=== PATIENT | female | born 1980 | race Caucasian/White ===

== ENCOUNTER 2019-07-07 14:29 | Emergency (ER) | payer MEDICAID, SELFPAY ==
[2019-07-07 14:30] VITALS: BP 150/93; PULSE 109; RESP 18; TEMP 36.1; O2SAT 98
--- NOTE | 2019-07-07 14:44 | CT_ITS ---
STUDY: CT ABDOMEN AND PELVIS WITHOUT CONTRAST REASON FOR EXAM: Female, 39 years old. Right flank pain radiating to umbilicus x today, dry heaves. RADIATION DOSAGE (If Supplied By Facility): CTDIvol = ( 10.42 ) mGy, DLP = ( 507.85 ) mGycm TECHNIQUE: Transaxial images were obtained from the dome of the diaphragm to the symphysis pubis without oral contrast, and without intravenous contrast. Sagittal and coronal images were reconstructed. Individualized dose optimization techniques were used for this CT. COMPARISON: None. FINDINGS: Minimal degree of increased markings at the lung bases suggestive of atelectasis. The visualized portions of the heart are within normal limits. Normal liver. Normal gallbladder and extrahepatic biliary system. Normal spleen. Normal pancreas. Normal bilateral adrenal glands. Normal right kidney. Normal left kidney. Normal visualized stomach. Normal small intestine. Normal colon. Small lymph nodes are seen in the mesentery in the right lower quadrant is suggestive of mesenteric adenitis. The appendix is visualized and appears normal. Normal abdominal aorta. Normal inferior vena cava. Normal retroperitoneum. Normal urinary bladder. There is a small umbilical hernia containing fat. Normal osseous structures. CT/Abdomen/Pelvis without Cont IMPRESSION: Findings suggestive of mesenteric adenitis. Electronically Signed: Otf Jackson, at 15:44 EST , Service support ,
--- NOTE | 2019-07-07 14:46 | ED.VIS.GEN ---
History of Present Illness Chief Complaint: Abd Pain Informant: Patient Onset: Hours Timing: Waxes and wanes Current Severity: Moderate Maximum Severity: Severe Narrative: She presents with rather abrupt onset of right flank pain a few hours ago. She states she feels like she is urinating frequently but does not have dysuria. She has had nausea and dry heaves. She denies history of kidney stone. No recent fall or injury. - Past Medical History (1) H/O: hysterectomy Status: Resolved Past Medical History - Allergies and Home Meds Allergies/Adverse Reactions: Allergies acetaminophen [From Percocet] Allergy (Intermediate, Verified 07/07/19 14:33) Hives morphine Allergy (Intermediate, Verified 07/07/19 14:33) Hives oxycodone HCl [From Percocet] Allergy (Intermediate, Verified 07/07/19 14:33) Hives Primary Care Physician: Care Physician,No Primary [NON-STAFF] - Prior records reviewed: Yes Smoking Status: Former smoker Review of Systems General: Denies: Chills, Fever Eyes: Denies: Visual changes - bilaterally ENT: Denies: Bilateral ear pain Cardiovascular: Denies: Chest pain Respiratory: Denies: Dyspnea, Cough Gastrointestinal: Reports: Abdominal pain, Nausea Genitourinary: Reports: Frequency. Denies: Dysuria, Hematuria Musculoskeletal: Denies: Swelling, Extremity Pain Skin: Denies: Rash Neurological: Denies: Headache Allergy: Denies: Uticaria Physical Exam Vital Signs/Narrative: Vital Signs Temp Pulse Resp BP Pulse Ox 07/07/19 14:30 97.0 F L 109 H 18 150/93 H 98 Inital Vital Signs reviewed: Yes General: Well nourished, Well developed Head: Normocephalic ENT: Moist mucous membranes Neck: Supple Cardiovascular: Regular rate, Regular rhythm Respiratory: No distress, CTA bilaterally Abdomen: Soft, Tender - Minimal right mid abdominal pain., Hypoactive bowel sounds Back: CVA tenderness - Right CVA tenderness Skin: Normal color Neurological: Alert, Oriented x3 Psychological: - - Anxious Diagnostic/Tx/Re-eval Impressions Abdomen/Pelvis CT 07/07/19 14:44 IMPRESSION: Findings suggestive of mesenteric adenitis. Electronically Signed: Otf Jackson, at 15:44 EST , Service support , 07/07/19 14:44 Abdomen/Pelvis without Cont [CT] Stat Laboratory Results 07/07/19 07/07/19 07/07/19 14:55 14:55 15:35 WBC 7.9 RBC 5.22 Hgb 14.8 Hct 44.7 MCV 85.6 MCH 28.4 MCHC 33.1 RDW Std Deviation 38.6 RDW Coeff of Earlene 12.4 Plt Count 328 MPV 9.9 Immature Gran % (Auto) 0.300 Neut % (Auto) 65.5 Lymph % (Auto) 28.0 [place] % (Auto) 6.2 Eos % (Auto) 0.0 Baso % (Auto) 0.0 Absolute Neuts (auto) 5.1 Absolute Lymphs (auto) 2.20 Nucleated RBC % 0 Sodium 137 Potassium 3.8 Chloride 105 Carbon Dioxide 28.0 Anion Gap 4 L BUN 7 Creatinine 0.81 Estim Creat Clear Calc 74.48 Est GFR (MDRD) Af Amer 102 Est GFR (MDRD) Non-Af 84 BUN/Creatinine Ratio 8.7 L Glucose 95 Calcium 9.8 Urine Color Yellow Urine Clarity Sl. Cloudy Urine pH 8.0 Ur Specific [place] 1.010 Urine Protein Negative Urine Glucose (UA) Normal Urine Ketones Negative Urine Occult Blood Negative Urine Nitrite Negative Urine Bilirubin Negative Urine Urobilinogen Normal Ur Leukocyte Esterase Negative Urine RBC 0 SEEN Urine WBC 0 SEEN Ur Squamous Epith Cells 0-5 SEEN Urine Bacteria 0 SEEN Urine Mucus 0 SEEN - Medical Decision Making Patient was given 2 doses of fentanyl, 25 mcg each along with Toradol and Zofran. On repeat evaluation she is resting more comfortably. Test results are discussed with her. She does have evidence of mesenteric adenitis but no other acute findings noted. She will be given a short course of [place] as well as Zofran for home. She is encouraged to return for worsening symptoms, fever, vomiting, etc. ED Disposition - Plan for ED Patient: Disposition: Home or Assisted Living Diagnosis: Mesenteric adenitis Instructions: Adenitis, Mesenteric Prescriptions: Hydrocodone Bitart/Apap 5-325 [[place] 5MG-325MG] 1 tab PO Q6H PRN PRN 3 Days #10 tab PRN Reason: Pain Transmission Status: Received by [facility] Ondansetron [Zofran Odt] 4 mg PO Q8H PRN PRN #10 tab PRN Reason: Nausea Transmission Status: Pending to [facility] Referrals: Ashia Cowart MD [STAFF PHYSICIAN] - As Needed
[2019-07-07] MEDS: fentaNYL 100 MCG/2 ML Ampul 25 MCG IV ×2 (14:57→15:16)
[2019-07-07] MEDS: Ondansetron 4 MG/2 ML Vial IV (14:57)
[2019-07-07] MEDS: Ketorolac 30 MG/ML Syringe IV (14:57)
[2019-07-07] MEDS: 0.9% Normal Saline 1,000 ML 150 ML IV (14:58)
[2019-07-07 15:08] LABS: Absolute Neutrophil Count 5.1 X10^3/uL (2.0-7.7); Hematocrit 44.7 % (37-47); Hemoglobin 14.8 g/dL (12.0-15.0); Mean Corp Hgb Conc 33.1 g/dL (32-36); Mean Corpuscular Hgb 28.4 pg (27.0-32.0); Mean Corpuscular Volume 85.6 fL (81-99); Mean Platelet Vol. 9.9 fl (6.2-12.0); Monocyte# 0.49 X10^3/uL; Monocyte% 6.2 % (0-10); NRBC Flagged by Analyzer 0 % (0-5); Neutrophil # 5.14 X10^3/uL (2.7-7.7); Neutrophil % 65.5 % (47-70); Platelet Count 328 K/mm3 (150-450); RBC Distribution Width CV 12.4 % (11.6-14.6); RBC Distribution Width SD 38.6 fl (35.1-43.9); Red Blood Count 5.22 M/mm3 (4.2-5.4); White Blood Count 7.9 K/mm3 (4.4-11.0)
[2019-07-07 15:18] VITALS: BP 149/93; PULSE 90; RESP 20; O2SAT 100
[2019-07-07 15:20] LABS: Anion Gap 4 (5-15); BUN 7 mg/dL (7-18); BUN/Creat Ratio 8.7 RATIO (10-20); Calcium,Total 9.8 mg/dL (8.5-10.1); Chloride 105 mmol/L (98-107); Creatinine, Serum 0.81 mg/dL (0.55-1.02); EST Glomerular Filtration Rate 84 mL/min (>60); Est Glom Filt Rate - Afr Amer 102 mL/min (>60); Estimated Creatinine Clearance 74.48 ml/min; Glucose 95 mg/dL (74-106); Potassium 3.8 mmol/L (3.5-5.1); Sodium Level 137 mmol/L (136-145)
[2019-07-07 15:43] LABS: Bacteria 0 SEEN /hpf (None Seen); Mucous, Urine 0 SEEN /hpf (<or=2+); Red Blood Cells-Urine 0 SEEN /hpf (0-5); White Blood Cells 0 SEEN /hpf (0-5)
[2019-07-07 15:53] LABS: Color, Urine Yellow (Yellow); Glucose, Dipstick Normal (Normal); Ketone-Dipstick Negative (Negative); Leukocyte Esterase-Dipstick Negative /ul (Negative); Nitrite-Dipstick Negative (Negative); Occult Blood-Urine Negative /ul (Negative); Protein-Dipstick Negative (Negative); Urine Bilirubin Dipstick Negative (Negative); Urine Clarity Sl. Cloudy (Clear); Urine Urobilinogen Normal (Normal)
[2019-07-07 16:18] LABS: Squamous Epithelial Cells - UA 0-5 SEEN /hpf (5-10)
[2019-07-07 16:51] VITALS: BP 125/70; PULSE 84; RESP 14; O2SAT 96
== END 2019-07-07 16:56 | disposition home or self-care (01) ==
PROVIDERS: Emergency Provider Emergency Medicine; PCP Family Medicine
DX: I88.0 Nonspecific mesenteric lymphadenitis (principal); Z87.891 Personal history of nicotine dependence; Z90.710 Acquired absence of both cervix and uterus; Z88.5 Allergy status to narcotic agent
CPT/HCPCS: 74176; 80048; 81001; 85025; 96361; 96374; 96375; 96376; 99283; J7030; A4216; J2405

== ENCOUNTER 2024-01-10 16:06 | Emergency (ER) | payer MEDICAID, SELFPAY ==
[2024-01-10 16:09] VITALS: BP 155/113; PULSE 101; RESP 20; TEMP 36.9; O2SAT 100; BMI 28.3
[2024-01-10 16:39] VITALS: BP 153/101; PULSE 80; RESP 16; O2SAT 94
[2024-01-10] MEDS: 0.9% Normal Saline (1000mL) 1,000 ML 999 ML IV (17:14)
[2024-01-10] MEDS: Ketorolac 15 MG/ML Vial IV (17:15)
[2024-01-10] MEDS: DiphenhydrAMINE 50 MG/ML Syringe 25 MG IV (17:15)
[2024-01-10] MEDS: Metoclopramide 10 MG/2 ML Vial IV (17:18)
[2024-01-10 17:22] VITALS: BP 145/88; PULSE 81; RESP 14; O2SAT 99
--- NOTE | 2024-01-10 17:36 | EDS_ITS ---
HPI <ANITA Garcia - Last Filed: 01/10/24 18:14> History of Present Illness Chief Complaint: Headache Narrative Narrative: Patient is a 43-year-old female with history of hypertension, migraines who presents to the emergency department for headache that is been ongoing since early this morning late last night. Patient states she has been under a great deal of stress over the last 2 to 3 days with her nephew. Patient was here in the emergency department with him all last night. Today, patient states that she has been feeling nauseous, having significant pain to the top of her head. She is of nausea, no vomiting. States the lights make the migraine worse. She denies any neck pain, fever or chills. PFSH <ANITA Garcia - Last Filed: 01/10/24 18:14> [facility] Medical History (Updated 01/10/24 @ 18:13 by ANITA Garcia) Marijuana smoker Anxiety Depression Hepatitis Smoker Migraines Home Medications ?Medication ?Instructions ?Recorded ?Last Taken ?Type buspirone 10 mg tablet 10 mg PO TID 01/10/24 Unknown History hydrochlorothiazide 25 mg tablet 25 mg PO DAILY 01/10/24 Unknown History hydroxyzine pamoate 25 mg capsule 25 mg PO TID PRN PRN anx 01/10/24 Unknown History ibuprofen 600 mg tablet 600 mg PO Q6H PRN PRN pain #20 01/10/24 Unknown Rx TABLETS ondansetron 4 mg disintegrating 4 mg PO Q8H PRN PRN Nausea #10 tabs 01/10/24 Unknown Rx tablet venlafaxine 75 mg capsule,extended 75 mg PO DAILY 01/10/24 Unknown History release 24 hr Allergy/AdvReac Type Severity Reaction Status Date / Time acetaminophen (From Percocet) Allergy Intermediate Hives Verified 07/07/19 14:33 morphine Allergy Intermediate Hives Verified 07/07/19 14:33 oxycodone HCl (From Percocet) Allergy Intermediate Hives Verified 07/07/19 14:33 Social History Smoking Status: Current every day smoker tobacco type: e-cigarettes ROS <ANITA Garcia - Last Filed: 01/10/24 18:14> ROS ED ROS Narrative Constitutional: Negative for fever, chills, weight loss, weakness Eyes: Negative for vision loss, vision change, double vision ENT: Negative for any sore throat, ear pain, congestion Cardiovascular: Negative for any chest pain, tightness, palpitations Respiratory: Negative for any cough, sputum production, hemoptysis, dyspnea, dyspnea on exertion, orthopnea Gastrointestinal: Negative for any abdominal pain, vomiting, diarrhea, constipation, blood in stool, blood in vomit. Positive for nausea : Negative for any urinary frequency, dysuria, retention, blood in urine Muscle skeletal: Negative for any neck pain, back pain Neurological: Negative for any syncope, dizziness. Positive for headache, photophobia Skin: Negative for any rashes, itching, abrasions, lacerations Psychiatric: Negative for any depression, anxiety, stress, suicidal ideation, homicidal ideation Hematologic: Negative for any excessive bruising, easy bleeding EXAM <ANITA Garcia - Last Filed: 01/10/24 18:14> Physical Exam Narrative Exam Narrative: Vital signs reviewed. HEET: Head normocephalic atraumatic, TMs clear bilaterally. Posterior pharynx is clear, moist mucous membranes. Nares clear bilaterally. Neck: Supple with no lymphadenopathy or tenderness. No signs of meningismus. Patient does show some photophobia on examination. Pupils are reactive. Cardiac: Regular rate and rhythm no murmurs gallops or rubs, equal peripheral pulses bilaterally. Respiratory: Lungs clear to auscultation bilaterally. No chest tenderness. Abdomen: Soft, nontender, nondistended. No abdominal bruit or pulsatile masses. No hepatosplenomegaly Extremities: No peripheral edema, no signs of gross trauma or deformity. Active full range of motion of all extremities. Neuro: Cranial nerves II through XII intact, no focal neurological deficits. NIH stroke scale 0. Skin: Clean dry and intact with no rash, purpura, petechiae, vesicles or pustules. Backs/flank: No CVA tenderness, no midline spinal tenderness, no deformity. Psych: Normal mood and affect. No SI, HI or acute psychosis. Const Vital Signs: 01/10/24 16:09 01/10/24 16:39 01/10/24 17:22 Temperature 98.4 F Temperature Source Oral Pulse Rate 101 H 80 81 Respiratory Rate 20 H 16 14 Blood Pressure 155/113 H 153/101 H 145/88 H Blood Pressure Mean 127 118 107 Pulse Ox 100 94 99 Oxygen Delivery Method Room Air Room Air Room Air <Dr. Charli Orlando MD - Last Filed: 01/10/24 17:46> Physical Exam Const Vital Signs: 01/10/24 16:09 01/10/24 16:39 01/10/24 17:22 Temperature 98.4 F Temperature Source Oral Pulse Rate 101 H 80 81 Respiratory Rate 20 H 16 14 Blood Pressure 155/113 H 153/101 H 145/88 H Blood Pressure Mean 127 118 107 Pulse Ox 100 94 99 Oxygen Delivery Method Room Air Room Air Room Air MDM <ANITA Garcia - Last Filed: 01/10/24 18:14> [facility] Treatment and Re-Evaluation :: Differential diagnosis includes however is not limited to: Migraine headache, thunderclap headache, meningitis, stress reaction Patient appears to be in no obvious respiratory distress vital signs are stable. Patient does look to feel uncomfortable secondary to pain to the top of her head which she complains to be the migraine. Physical examination consistent with a migraine. Patient received IV fluids, Reglan Benadryl as well as Toradol. Lights be turned off, patient be reevaluated. At this time, do not believe the patient needs any advanced imaging of her head. On reevaluation, the patient was sleeping. I woke the patient up, she states she felt much better. Patient will be taken home by her . Patient be given ibuprofen, Zofran for home. Instructed to follow-up outpatient, instructed go home, drink a big glass of water go to bed. Instructed return for any worsening symptoms. Stable for discharge. <Dr. Charli Orlando MD - Last Filed: 01/10/24 17:46> [facility] Narrative Medical decision making narrative: I have personally performed a face to face assessment of the patient and have reviewed the VICTORIANO Note. I performed a substantive portion of the visit including all aspects of the following. My galeano findings include: History is gradual onset migraine headache similar to prior due to lots of recent emotional stress. No suicidality. No focal neurologic symptoms. Exam is normal neurologic exam supple neck, mild photophobia, NAD. Medical Decison Making migraine treatment and reevaluate. Other additions or changes: [None] Discharge Plan Triage Chief Complaint: Headache ED Midlevel Provider: [place] [facility] ED Provider: Charli Orlando Dx/Rx/DC Orders Clinical Impression: Migraine Instructions: ED, Migraine (Classical) Prescriptions: New ondansetron 4 mg tablet,disintegrating 4 mg PO Q8H PRN PRN (Reason: Nausea) Qty: 10 0RF ibuprofen 600 mg tablet 600 mg PO Q6H PRN PRN (Reason: pain) Qty: 20 0RF No Action venlafaxine 75 mg capsule,extended release 24hr 75 mg PO DAILY hydrochlorothiazide 25 mg tablet 25 mg PO DAILY hydroxyzine pamoate 25 mg capsule 25 mg PO TID PRN PRN (Reason: anx) buspirone 10 mg tablet 10 mg PO TID Primary Care Provider: Sarkis Clark Referrals: Sarkis Clark MD [Primary Care Provider] - Activity Restrictions/Additional Instructions: Please follow-up outpatient. Print Language: Turkish Disposition Disposition: Home, Self Care
[2024-01-10 18:22] VITALS: BP 128/94; PULSE 81; RESP 16; TEMP 36.6; O2SAT 98
== END 2024-01-10 18:26 | disposition home or self-care (01) ==
PROVIDERS: Emergency Provider Emergency Medicine; PCP Family Medicine; Visit Provider Emergency Medicine
DX: G43.909 Migraine, unspecified, not intractable, without status migrainosus (principal); I10 Essential (primary) hypertension; F17.210 Nicotine dependence, cigarettes, uncomplicated; F41.9 Anxiety disorder, unspecified; F32.A Depression, unspecified
CPT/HCPCS: 96361; 96374; 96375; 99284; J7030; A4216